=== PATIENT | male | born 1980 | race Caucasian/White ===

== ENCOUNTER 2018-04-15 11:16 | Inpatient (IN) | payer MEDICAID, OTHER ==
[~2018-04-15] VITALS: Ht 175.3 cm; Wt 77.1 kg
[2018-04-15] MEDS ORDERED: SODIUM CHLORIDE 0.9% 1,000ML IVBOLUS ONE (12:00)
[2018-04-15] MEDS ORDERED: SODIUM CHLORIDE FLUSH 10ML SYR IVF ONE (12:00)
[2018-04-15 12:12] LABS: BASOPHILS # (AUTO) 0.03 x10^3/uL (0-0.1); BASOPHILS % (AUTO) 0 % (0-1); EOSINOPHILS # (AUTO) 0.06 x10^3/uL (0-0.4); EOSINOPHILS % (AUTO) 1 % (1-7); LYMPHOCYTES # (AUTO) 1.25 x10^3/uL (1-3.4); LYMPHOCYTES % (AUTO) 15 % (22-44); MD NO; MEAN CORPUSCULAR HEMOGLOBIN 31.4 pg (27.5-34.5); MEAN CORPUSCULAR HGB CONC 34.6 g/dL (33.2-36.2); MEAN CORPUSCULAR VOLUME 90.6 fL (81-97); MEAN PLATELET VOLUME 7.4 fL (7.4-10.4); MONOCYTES # (AUTO) 0.38 x10^3/uL (0.2-0.8); MONOCYTES % (AUTO) 5 % (2-9); NEUTROPHILS # (AUTO) 6.82 x10^3/uL (1.8-6.8); NEUTROPHILS % (AUTO) 80 % (42-75); PLATELET COUNT 231 x10^3/uL (130-400); RED BLOOD COUNT 3.89 x10^6/uL (4.38-5.82); RED CELL DISTRIBUTION WIDTH 13.4 % (9.4-14.8)
[2018-04-15] MEDS ORDERED: ONDANSETRON ODT 4 MG ONE (12:18)
[2018-04-15 12:20] LABS: INTERNATIONAL NORMALIZED RATIO 0.97 (0.93-1.1); PROTHROMBIN TIME 10.1 Seconds (9.6-11.5)
[2018-04-15 12:24] LABS: ALANINE AMINOTRANSFERASE 34 U/L (12-78); ALBUMIN 3.7 g/dL (3.4-5.0); ANION GAP 8 mmol/L (5-15); CALCIUM 8.2 mg/dL (8.5-10.1); CHLORIDE 108 mmol/L (98-107); CREATININE 0.92 mg/dL (0.7-1.3)
[2018-04-15 12:26] LABS: ALKALINE PHOSPHATASE 68 U/L (45-117); TOTAL PROTEIN 6.8 g/dL (6.4-8.2)
[2018-04-15] MEDS ORDERED: PLEASE ENTER ALLERGIES MC SCH (12:30)
[2018-04-15] MEDS ORDERED: ONDANSETRON ODT 4 MG PO ONE (12:30)
[2018-04-15] MEDS ORDERED: PANTOPRAZOLE 80 MG in SODIUM CHLORIDE 0.9% 50 ML IV ONE (13:00)
[2018-04-15] MEDS ORDERED: PANTOPRAZOLE 80 MG in SODIUM CHLORIDE 0.9% 100 ML IV SCH (13:00)
[2018-04-15] MEDS ORDERED: SODIUM CHLORIDE 0.9% 1,000 ML IV SCH ×3 (13:38→14:30)
[2018-04-15] MEDS ORDERED: morphine SULFATE 10 MG/ML, 1ML IVPush PRN (14:00)
[2018-04-15] MEDS ORDERED: ONDANSETRON 2MG/ML, 2ML IVPush PRN (14:00)
[2018-04-15] MEDS: SUCRALFATE 1 GM TABLET PO SCH ×3 (14:30→20:54)
[2018-04-15 20:00] VITALS: BP 117/82
[2018-04-15] MEDS: SODIUM CHLORIDE 0.9% 1,000 ML IV SCH (20:54)
[2018-04-15] MEDS: PANTOPRAZOLE 80 MG in SODIUM CHLORIDE 0.9% 100 ML IV SCH (20:54)
[2018-04-16] MEDS: SODIUM CHLORIDE 0.9% 1,000 ML IV SCH ×2 (01:57→11:30)
[2018-04-16 02:00] VITALS: BP 108/68
[2018-04-16 04:57] LABS: BASOPHILS # (AUTO) 0.03 x10^3/uL (0-0.1); BASOPHILS % (AUTO) 1 % (0-1); EOSINOPHILS # (AUTO) 0.22 x10^3/uL (0-0.4); EOSINOPHILS % (AUTO) 5 % (1-7); LYMPHOCYTES # (AUTO) 1.43 x10^3/uL (1-3.4); LYMPHOCYTES % (AUTO) 31 % (22-44); MD NO; MEAN CORPUSCULAR HEMOGLOBIN 30.3 pg (27.5-34.5); MEAN CORPUSCULAR HGB CONC 33.5 g/dL (33.2-36.2); MEAN CORPUSCULAR VOLUME 90.4 fL (81-97); MEAN PLATELET VOLUME 7.3 fL (7.4-10.4); MONOCYTES # (AUTO) 0.39 x10^3/uL (0.2-0.8); MONOCYTES % (AUTO) 8 % (2-9); NEUTROPHILS % (AUTO) 55 % (42-75); PLATELET COUNT 169 x10^3/uL (130-400); RED BLOOD COUNT 3.09 x10^6/uL (4.38-5.82); RED CELL DISTRIBUTION WIDTH 13.6 % (9.4-14.8)
[2018-04-16 05:04] LABS: ANION GAP 4 mmol/L (5-15); CALCIUM 7.5 mg/dL (8.5-10.1); CHLORIDE 110 mmol/L (98-107)
[2018-04-16 05:08] LABS: ALANINE AMINOTRANSFERASE 28 U/L (12-78); ALKALINE PHOSPHATASE 50 U/L (45-117); BILIRUBIN,TOTAL 1.3 mg/dL (0.2-1.0); CREATININE 0.92 mg/dL (0.7-1.3); TOTAL PROTEIN 5.4 g/dL (6.4-8.2)
[2018-04-16] MEDS: PANTOPRAZOLE 80 MG in SODIUM CHLORIDE 0.9% 100 ML IV SCH (06:31)
[2018-04-16] MEDS: SUCRALFATE 1 GM TABLET PO SCH ×2 (07:00→12:47)
[2018-04-16 07:50] VITALS: BP 117/72
[2018-04-16] MEDS ORDERED: FENTANYL PF 100 MCG/2ML ONE (09:02)
[2018-04-16] MEDS ORDERED: MIDAZOLAM 1 MG/ML, 5ML ONE (09:03)
[2018-04-16] MEDS ORDERED: ACETAMINOPHEN 325 MG TABLET PO PRN (09:35)
[2018-04-16] MEDS ORDERED: ACETAMINOPHEN 325 MG TABLET ONE (09:36)
[2018-04-16] MEDS ORDERED: DIAZEPAM 5 MG/ML, 2ML IV ONE (10:00)
[2018-04-16] MEDS ORDERED: EPINEPHRINE SYRINGE 0.1 MG/ML, 10ML ONE (11:10)
[2018-04-16] MEDS ORDERED: OMEPRAZOLE 20 MG CAPSULE.DR PO SCH (11:30)
[2018-04-16] MEDS ORDERED: OMEP-110 PO (14:43)
[2018-04-16] MEDS ORDERED: SUCR1TAB33 PO (14:43)
== END 2018-04-16 16:35 | disposition home or self-care (01) | DRG 369 ==
LOC: OR 12:56 → EDIP 12:57 → OR 13:21 → 4WST 14:06 → DCLOUNGE 04-16 16:10
PROVIDERS: ADMIT Internal Medicine; ATTEND Internal Medicine
PROC: 0W3P8ZZ Control Bleeding in Gastrointestinal Tract, Via Natural or Artificial Opening Endoscopic (ICD-10-PCS; 2018-04-16)
PROC: 3E0G8GC Introduction of Other Therapeutic Substance into Upper GI, Via Natural or Artificial Opening Endoscopic (ICD-10-PCS; 2018-04-16)
PROC: 0DB68ZX Excision of Stomach, Via Natural or Artificial Opening Endoscopic, Diagnostic (ICD-10-PCS; principal; 2018-04-16 11:00)
DX: K22.6 Gastro-esophageal laceration-hemorrhage syndrome (principal); C71.9 Malignant neoplasm of brain, unspecified; D62 Acute posthemorrhagic anemia; E83.51 Hypocalcemia; N19 Unspecified kidney failure; E86.0 Dehydration; M54.9 Dorsalgia, unspecified; T39.395A Adverse effect of other nonsteroidal anti-inflammatory drugs [NSAID], initial encounter; K44.9 Diaphragmatic hernia without obstruction or gangrene; R73.9 Hyperglycemia, unspecified; F12.90 Cannabis use, unspecified, uncomplicated; G89.29 Other chronic pain; K21.9 Gastro-esophageal reflux disease without esophagitis; Z85.841 Personal history of malignant neoplasm of brain; Z79.899 Other long term (current) drug therapy; Y92.89 Other specified places as the place of occurrence of the external cause
CPT/HCPCS: 36415; 74022; 80053; 83690; 85014; 85018; 85025; 85610; 86850; 86900; 88305; 93005; 96374; 99152; 99153; J2250; J3010; Q0162; C9113; J7030